=== PATIENT | male | born 1980 | race Caucasian/White ===

== ENCOUNTER 2025-09-30 09:52 | Emergency (ER) | payer OTHER, SELFPAY ==
--- NOTE | ~2025-09-30 | XR_ITS ---
Examination: XR chest 2V Clinical History: productive cough/sob x 2 weeks, no inj, no surg Comparison: None Technique: PA and Lateral Findings: Cardiomediastinal silhouette normal size and configuration. Lungs clear. No acute bony abnormality. IMPRESSION: 1. No acute cardiopulmonary findings. Reviewed, dictated and finalized at location R.
--- NOTE | 2025-09-30 09:56 | ED_ITS ---
HPI - URI/Sore Throat General Chief Complaint: Upper Respiratory Infection Stated Complaint: COUGH/CONGESITON S/P COVID Time Seen by Provider: 09/30/25 09:55 Source: patient Mode of arrival: ambulatory Limitations: no limitations History of Present Illness HPI Narrative: Greyson was a 45-year-old male patient presenting to the clinic today with complaints of cough and chest congestion x2 weeks. He reports he is coughing up green and yellow phlegm. Does have some shortness of breath but denies any chest pain. Had fever on the 1st day of his illness but nothing since. He tested positive for COVID 3 weeks ago. He is a nonsmoker. No history of asthma. Has been taking Robitussin for his symptoms without much relief. Related Data Home Medications ?Medication ?Instructions ?Recorded ?Confirmed ?Last Taken ?Type lisinopril 5 mg tablet mg 09/30/25 Unknown History pravastatin 40 mg tablet mg 09/30/25 Unknown History Allergies Allergy/AdvReac Type Severity Reaction Status Date / Time No Known Allergies Allergy Verified 09/30/25 10:03 Review of Systems Review of Systems: Pertinent positives per HPI. Patient denies any fever, chills, rash, headache, visual changes, dizziness, chest pain, palpitations, nausea, vomiting, diarrhea, constipation, abdominal pain, or any urinary issues. JEROMY Comments At the time of my signature, I reviewed and agree with the nursing past medical, surgical, social, and family history. There is no relevant family history pertinent to the patient complaint. Exam Narrative: General: Well-developed, well nourished, in no apparent distress Head: Normocephalic, atraumatic Eyes: Pupils equally round and reactive to light bilaterally, EOM intact, sclera and conjunctive clear, no discharge, lids normal Ears: TMs intact and congested, ear canals clear, no drainage, grossly hearing normal. Nose: Nares patent, clear nasal discharge, moderate inflammation, maxillary sinus tenderness. Mouth: Oral pharynx red without lesions or masses, good dentition, MMM. Postnasal drip Neck: Supple, trachea midline, no enlargement of anterior or posterior cervical nodes, no thyroid masses or goiter palpable. Cardio: Regular rate and rhythm, s1 and s2 normal, no murmur appreciated. Resp: Diminished in the bases, no rhonchi, rales, wheezing or rubs Course Course Emergency Course: Portions of this record may have been created with voice recognition software. Level of Care: Express Care Visit Vital Signs Vital signs: Vital Signs Temperature 36.5 C 09/30/25 10:04 Pulse Rate 78 09/30/25 10:04 Respiratory Rate 16 09/30/25 10:04 Blood Pressure 141/81 H 09/30/25 10:04 Pulse Oximetry 98 09/30/25 10:04 Temperature 36.5 C 09/30/25 10:04 Pulse Rate 78 09/30/25 10:04 Respiratory Rate 16 09/30/25 10:04 Blood Pressure 141/81 H 09/30/25 10:04 Pulse Oximetry 98 09/30/25 10:04 Vital signs reviewed MDM - URI/Sore Throat MDM Narrative Medical decision making narrative: At the time of visit patient is resting comfortably on the exam table. Patient appears to be nontoxic. Complaints of cough and chest congestion x2 weeks. He reports he is coughing up green and yellow phlegm. Does have some shortness of breath but denies any chest pain. Had fever on the 1st day of his illness but nothing since. He tested positive for COVID 3 weeks ago. He is a nonsmoker. No history of asthma. Has been taking Robitussin for his symptoms without much relief. Patient is able speak in full sentences. Oxygen saturations 98% on room air. On exam patient has congested bilateral TMs, clear nasal drainage with moderate anterior turbinates swelling, oropharynx with postnasal drip, lung sounds diminished in the bases, heart rates regular rate and rhythm. Chest x- ray was ordered. Diagnostics: Chest x-ray was performed and was negative for any acute cardiopulmonary process. Plan: I suspect patient has sinusitis/ bronchitis. Prescription for albuterol inhaler, Tessalon Perles, Augmentin, and prednisone was sent to the pharmacy. Supportive measures were discussed with the patient and they voiced understanding discharge instructions and agrees to treatment plan. Return precautions reviewed Differential Diagnosis Differential diagnosis: Likely upper respiratory infection, otitis media, sinusitis, viral infection, bronchitis, influenza, pharyngitis and other (COVID, pneumonia) Discharge Plan Discharge Clinical Impression: Sinobronchitis Patient Disposition: Home Condition: Stable Instructions: Antibiotic Form, Sinusitis (ED), Acute Bronchitis (ED) Additional Instructions: Chest x-rays negative for any acute cardiopulmonary process Take prescription medications only as prescribed-Augmentin, prednisone, Tessalon Perles, and albuterol inhaler Increase fluids and stay well hydrated May take Tylenol or motrin as directed on bottle for pain/fever May use Flonase 1 spray in each nare daily May take OTC antihistamines such as Zyrtec or Claritin daily as directed on bottle May apply Vicks vapor rub to chest to open sinuses Sinus rinses for congestion Cepacol spray, cough drops, throat lozenges, warm tea with honey/lemon, gargle salt water to soothe throat BRAT diet for diarrhea Clear liquids x 24 hours then advance as tolerated for nausea/vomiting Go to the ED if you develop a worsening in your condition- high fever not controlled by Tylenol or Motrin, dehydration, weakness, lethargy, shortness of breath, or chest pain. Follow up with your PCP in 3-5 days if symptoms persist. Patient Language: Malawian Prescriptions: New amoxicillin-pot clavulanate 875-125 mg tablet 1 tablet PO Q12H 10 Days Qty: 20 0RF prednisone 20 mg tablet 40 mg PO DAILY 5 Days Qty: 10 0RF benzonatate 200 mg capsule 200 mg PO TID 7 Days Qty: 21 0RF albuterol sulfate 90 mcg/actuation HFA aerosol inhaler 2 puff inhalation Q4-6H PRN (Reason: shortness of breath or wheezing) 30 Days Qty: 8.5 0RF No Action pravastatin 40 mg tablet lisinopril 5 mg tablet Follow-up/Referrals: UNKNOWN,DOCTOR [Non-Staff] Time of Disposition: 10:29 Quality NIHSS Nursing Documentation ED NIHSS nursing documentation: reviewed/agree
[2025-09-30 10:04] VITALS: BP 141/81; PULSE 78; RESP 16; TEMP 36.5; O2SAT 98
== END 2025-09-30 10:37 | disposition home or self-care (01) ==
PROVIDERS: Emergency Provider Nurse Practitioner Family
DX: J32.9 Chronic sinusitis, unspecified (principal); J40 Bronchitis, not specified as acute or chronic; I10 Essential (primary) hypertension; E78.00 Pure hypercholesterolemia, unspecified
CPT/HCPCS: 71046; 99213; G0463